=== PATIENT | male | born 2000 ===

== ENCOUNTER 2024-05-15 18:44 | Emergency (ER) | payer OTHER ==
[2024-05-15 18:52] VITALS: BP 120/64; PULSE 65; RESP 18; TEMP 97.3; BMI 25.1
[2024-05-15] MEDS ORDERED: METOCLOPRAMIDE HCL INJECTION 10 MG/2 ML VIAL ONE (20:29)
[2024-05-15] MEDS: LACTATED RINGERS SOLUTION 1,000 ML/1,000 ML INFUS.BAG IV SCH (20:35)
[2024-05-15] MEDS: METOCLOPRAMIDE HCL INJECTION 10 MG/2 ML VIAL IVPUSH ONE (20:35)
[2024-05-15 20:50] LABS: BASO % 0.5 % (0-2.0); EOS % 0.6 % (0-4.5); HEMATOCRIT 51.8 % (35.4-49); HEMOGLOBIN 17.1 GM/dL (11.7-16.9); LYMPH % 21.3 % (8-40); MCH 28.5 pg (25.7-33.7); MEAN CELL VOLUME 86.5 fl (80-96); MEAN PLT VOLUME 7.7 fl (7.5-11.1); MONO % 7.3 % (3.8-10.2); NEUT % 70.3 % (42.8-82.8); PLATELET COUNT 236 10^3/uL (134-434); RBC 5.99 M/mm3 (4.00-5.60); RDW 13.4 % (11.9-15.9); WHITE BLOOD COUNT 7.4 K/mm3 (4.0-10.0)
[2024-05-15 21:04] LABS: POTASSIUM 4.2 mmol/L (3.5-5.1)
[2024-05-15 21:06] LABS: CALCIUM 9.3 mg/dL (8.5-10.1)
[2024-05-15 21:07] LABS: ALBUMIN 4.5 g/dl (3.4-5.0); BLOOD UREA NITROGEN 16.3 mg/dL (7-18); MAGNESIUM 2.1 mg/dL (1.8-2.4)
[2024-05-15 21:10] LABS: CREATININE 1.3 mg/dL (0.55-1.3)
[2024-05-15 21:11] LABS: TOT PROT 7.3 g/dl (6.4-8.2)
[2024-05-15 21:12] LABS: BILIRUBIN,TOTAL 0.7 mg/dL (0.2-1)
== END 2024-05-15 22:55 | disposition home or self-care (01) ==
LOC: JER 18:44
PROC: 3E033GC Introduction of Other Therapeutic Substance into Peripheral Vein, Percutaneous Approach (ICD-10-PCS; principal; 2024-05-15)
PROC: 3E033GC Introduction of Other Therapeutic Substance into Peripheral Vein, Percutaneous Approach (ICD-10-PCS; 2024-05-15)
DX: H83.02 Labyrinthitis, left ear (principal); R42 Dizziness and giddiness; R11.0 Nausea
CPT/HCPCS: 36415; 80053; 83735; 85025; 86618; 93005; 93010; 99284-25